=== PATIENT | female | born 1995 | race Caucasian/White ===

== ENCOUNTER 2024-09-02 08:23 | Outpatient (AMB) | payer BC, SELFPAY ==
--- NOTE | 2024-09-02 08:25 | GYNCLNT_ITS ---
Vital Signs 09/02/24 08:29 Height 1.57 m Height Method Stated Weight 63.56 kg Weight Measurement Method Standing Scale BMI 25.6 BP 121/87 H Blood Pressure Source Automatic Cuff Blood Pressure Location Left Upper Arm Position Sitting Respiration 18 Pulse 92 Pulse Source Monitor Temp 97.9 F Temp Source Oral Pulse Oximetry (%) 96 Oxygen Delivery Method Room Air Allergies/Home Meds Allergies & Medications Allergies No Known Allergies Allergy (Verified 09/02/24 08:30) Medication Reconciliation No Known Home Medications 09/02/24 [History Confirmed 09/02/24] Intake Visit Data Collection New Patient or Established: New Patient not seen in past 3 years at [facility] (considered New) Reason for Visit:: ANNUAL WELLNESS Seen by Clinical Staff ONLY (RN/MA): No Flat Grinder Operator Required: No Do You Feel Safe at Home: Yes Authorities Contacted: N/A PCP or OBGYN visit in last 3 months: No Hx Now: No Are you currently on any form of Control: No Last menstrual period: 08/09/24 Pain Present Currently: No Pain Scale Used: Booker-Beauchamp/Numerical Pain scale:: 0 Smoking Status Smoking Status: Never smoker Beam Dyer Recessed Vat history Beam Dyer Recessed Vat History Menstrual regularity: regular Flow: normal Monthly: Yes How many days does period last: 6 Age at menarche: 14 Menopausal: No Currently sexually active: Yes Additional comments: Actively trying to get Questionnaires Covid-19 Vaccine Questionnaire Has patient been vacinated for Covid-19 Have you been vacinated for Covid-19: Yes PHQ-9 PHQ-2 Over the last 2 weeks, how often have you been bothered by any of the following problems? 1. Little interest or pleasure in doing things: not at all 2. Feeling down, depressed, or hopeless: not at all Total score: 0 PHQ-9 3. Trouble falling or staying asleep, or sleeping too much: Not at all 4. Feeling tired or having little energy: Not at all 5. Poor appetite or overeating: Not at all 6. Feeling bad about yourself - or that you are a failure or have let yourself or your family down: Not at all 7. Trouble concentrating on things, such as reading the newspaper or watching television: Not at all 8. Moving or speaking so slowly that other people could have noticed? - Or the opposite - being so fidgety or restless that you have been moving around a lot more than usual: not at all 9. Thoughts that you would be better off or of hurting yourself in some way: Not at all Total score: 0 Source: Developed by Drs. Arnav Gutierrez, Bella Irene, Mark William and colleagues, with an educational derrick from [employer]. Depression screen completed yes Social History Living Situation History Marital Status: Lives With: Family Housing: House Housing Other:: Patient works for [employer]. Her is a police detective. 5 y/o girl Tobacco History Smoking Status: Never smoker Second Hand Smoke Exposure: No Alcohol History Alcohol Intake: Never Domestic Abuse History Do You Feel Safe at Home: Yes Past Medical History Past Medical History Have you ever been diagnosed with any of the following: Cardiology Problems Hypertension: Yes (With ) Respiratory Problems Tuberculosis: No Genital/Urinary Problems Chronic Kidney Disease: No Renal Disease: No Reproductive Problems Breast Cancer: No Endometriosis: No Fibroids: No Genital Herpes: No Gonorrhea: No Pelvic Inflammatory Disease: No Polycystic Ovarian Syndrome: No Previous Pregnancies: Yes ( 3 years ago. Induced at 40 weeks. Pushed 45 minutes.) Syphilis: No Uterine Prolapse: No Other Problems Hospitalization: Yes (For childbirth) History of Present Illness HPI Narrative The patient is a 29 year old who presents for an annual exam. I delivered her daughter, Jasmeet, in [address], at 40-4/7 weeks. She states her blood pressure was up slightly. I stripped her membranes in the office and she went over to the hospital she ended up getting an epidural and Pitocin . She stated she pushed for 45 minutes. Her delivery was uncomplicated. She is actively trying to achieve again. She states she has regular menses. She has no gynecological complaints, no abnormal uterine bleeding, no pelvic pain, no abnormal discharge. Exam General General Appearance: alert, in no apparent distress, comfortable, cooperative, healthy appearing and well groomed Neck Neck exam: Present normal inspection, full ROM and trachea midline Chest Chest inspection: Present normal inspection and symmetric chest wall rise Exp Chest Breast: bilateral: other (Breast exam performed and normal bilaterally) Resp Respiratory exam: Present normal lung sounds bilaterally Card Cardiovascular exam: Present regular rate, normal rhythm and normal heart sounds Abdominal Abdominal exam: Present soft and normal bowel sounds External exam: Present normal external exam Speculum exam: Present normal speculum exam Bimanual exam: Present normal bimanual exam (Uterus is anteverted no adnexal masses or tenderness) Extremities Extremities exam: Present normal inspection and full ROM Psych Psychiatric exam: Present normal affect and normal mood Skin Skin exam: Present warm, dry, intact and normal color Assessment & Plan Diagnosis / Problem List (1) Women's annual routine gynecological examination: Status: Acute Assessment and Plan: Pap with cotesting to HPV performed breast exam done and encouraged (2) Pre-conception counseling: Status: Acute Assessment and Plan: Patient to take vitamins. She is up-to-date in all immunizations. She will consider baby aspirin during her next time for a history of hypertension during . She will call with a positive test. Office Procedures OB Clinic LOC & Office Proc's Nursing/Assessment Patient Status: Initial/New Patient OB Clinic Nursing Assessment: Medication Reconciliation, Update PMH in EMR and Vital Signs OB Clinic Coordination of Care: Complex Care and Chronic Disease 1-5, Consent,records obtained, informed consent, Education Simp Pt/Fam, Lab and Imaging orders and Staff clarify orders Miscellaneous Interventions: Breast Exam and Pelvic/Pap Smear Set up New Patient Charge New Patient Point Assignment: 1149 New Patient Point Charge: PHARMACY SERVICES DIRECTOR Level 4 ([id number]) In Clinic Procedures Pap Smear: Yes PIPE INSTALLER: Papsmear Pap Smear Procedure Chaparone in room during procedure?: No Pre-op diagnosis general: Annual wellness exam Post-op diagnosis procedure note: Same Procedure Notes:: Pap with cotesting to HPV performed
[2024-09-02 08:29] VITALS: BP 121/87; PULSE 92; RESP 18; TEMP 36.6; O2SAT 96; BMI 25.6
== END 2024-09-02 09:16 | disposition home or self-care (01) ==
PROVIDERS: PCP Family Medicine; Referring Provider Family Medicine; Supervising Provider Obstetrics & Gynecology; Visit Provider Obstetrics & Gynecology
DX: Z01.419 Encounter for gynecological examination (general) (routine) without abnormal findings (principal); Z11.51 Encounter for screening for human papillomavirus (HPV); Z87.59 Personal history of other complications of pregnancy, childbirth and the puerperium
CPT/HCPCS: 99204; Q0091; G0463

== ENCOUNTER 2024-10-27 09:22 | Outpatient (AMB) | payer BC, SELFPAY ==
[2024-10-27 09:36] VITALS: BP 128/74; PULSE 94; RESP 17; TEMP 36.4; O2SAT 98; BMI 25.2
--- NOTE | 2024-10-27 09:36 | AMB.OBINITIA ---
Vital Signs 10/27/24 09:36 Height 1.57 m Height Method Measured Weight 62.596 kg Weight Measurement Method Standing Scale BMI 25.2 BP 128/74 Blood Pressure Source Automatic Cuff Blood Pressure Location Right Upper Arm Position Sitting Respiration 17 Pulse 94 Pulse Source Monitor Temp 97.6 F Temp Source Temporal Artery Scan Pulse Oximetry (%) 98 Oxygen Delivery Method Room Air Allergies/Home Meds Allergies & Medications Allergies No Known Allergies Allergy (Verified 10/27/24 09:37) Medication Reconciliation No Known Home Medications 09/02/24 [History Confirmed 10/27/24] Intake Visit Data Collection New Patient or Established: Established Patient (seen at [facility] within 3 years) Reason for Visit:: SOTO Consent obtained for Telemed Visit: No Seen by Clinical Staff ONLY (RN/MA): No Shrimp Picker Required: No Do You Feel Safe at Home: Yes Authorities Contacted: N/A PCP or OBGYN visit in last 3 months: Yes Date of Last PCP or OBGYN visit: 09/02/24 Hx Now: Yes Are you currently on any form of Control: No Last menstrual period: 08/25/24 Pain Present Currently: No Pain Scale Used: Booker-Beauchamp/Numerical Pain scale:: 0 Smoking Status Smoking Status: Never smoker Questionnaires Covid-19 Vaccine Questionnaire Has patient been vacinated for Covid-19 Have you been vacinated for Covid-19: Yes PHQ-9 PHQ-2 Over the last 2 weeks, how often have you been bothered by any of the following problems? 1. Little interest or pleasure in doing things: not at all 2. Feeling down, depressed, or hopeless: not at all Total score: 0 PHQ-9 3. Trouble falling or staying asleep, or sleeping too much: Not at all 4. Feeling tired or having little energy: Not at all 5. Poor appetite or overeating: Not at all 6. Feeling bad about yourself - or that you are a failure or have let yourself or your family down: Not at all 7. Trouble concentrating on things, such as reading the newspaper or watching television: Not at all 8. Moving or speaking so slowly that other people could have noticed? - Or the opposite - being so fidgety or restless that you have been moving around a lot more than usual: not at all 9. Thoughts that you would be better off or of hurting yourself in some way: Not at all Total score: 0 If you checked off any problems, how difficult have these problems made it for you to do your work, take care of things at home, or get along with other people?: not difficult at all Source: Developed by Drs. Arnav Gutierrez, Bella Irene, Mark William and colleagues, with an educational derrick from [employer]. Social History Living Situation History Marital Status: Lives With: Family Housing: House Housing Other:: Patient works for [employer]. Her is a police detention attendant. 5 y/o girl Tobacco History Smoking Status: Never smoker Second Hand Smoke Exposure: No Alcohol History Alcohol Intake: Former Alcohol Intake Frequency: holidays/special occasions only Domestic Abuse History Do You Feel Safe at Home: Yes History of Present Illness HPI Narrative Patient was not seen as I was out for delivery. She did have an ultrasound and lab work ordered. She will return in 2 weeks for a visit. An ultrasound revealed a live IUP at 9 weeks 2 days with cardiac activity noted. LEARNING ANALYST: Past Medical History Past Medical History: No Hx Breast Cancer, Yes Hx Hypertension (With ), No Hx Renal Disease and No Hx Polycystic Ovarian Syndrome OB Initial Visit Menstrual History Menstrual reliability: definite Flow: normal Menstrual regularity: regular Monthly: Yes Age at menarche: 15 On control pills at conception: No Date of positive home test: 09/18/24 OB History : 2 Para: 1 Hx # Pregnancies: 0 Hx Total # of Abortions (Spontaneous & Elective): 0 # of Living Children: 1 Delivery History 1st : Child's name: ELY RICH date: 10/02/21 sex: female Gestational age at delivery (weeks): 40 Delivery type: vaginal weight (lbs): 2721.554 g weight (oz): 85.049 g History of depression before or after : No Infection History & Risk Evaluation History of STDs: none HIV risk evaluation: low risk Hepatitis B risk evaluation: low risk Patient or partner has history of Genital Herpes: No Genetic Screening & History Genetic Screening/Teratology Counseling - Includes patient, baby's father, or anyone in either family with: 1. Patient's age 35 years or older as of estimated date of delivery: No 2. Thalassemia (Zimbabwean, Barbadian, Mediterranean, or Background); MCV less than 80: No 3. Neural Tube Defect (Meningomyelocele, Spina Bifida, or Anencephaly): No 4. Congenital Heart Defect: No 5. Down Syndrome: No 6. Pola-Sachs (Ashkenazi Hoahaoism, Cajun, Ivorian Hubertus): No 7. Alexandra Disease (Ashkenazi Hoahaoism): No 8. Familial Dysautonomia (Ashkenazi Hoahaoism): No 9. Sickle Cell Disease or Trait (): No 10. Hemophilia or other blood disorders: No 11. Muscular Dystrophy: No 12. Cystic Fibrosis: No 13. [place]'s Chorea: No 14. Mental Retardation/Autism: No 15. Other inherited genetic or chromosomal disorder: No 16. Maternal Metabolic Disorder (EG,TYPE 1 Diabetes, PKU): No 17. Patient or baby's father had a child with defects not listed above: No 18. Recurrent loss or a stillbirth: No 19. Medications (including supplements, vitamins, herbs or otc drugs)/illicit/recreational drugs/alcohol since last menstrual period: No 20. Any other: No Infection History 1. Live with someone with TB or exposed to TB: No 2. Rash or viral illness since last menstrual period: No 3. Hepatitis B,C: No Other (see comments) Source: [employer] Office Procedures OB Clinic LOC & Office Proc's Nursing/Assessment Patient Status: Established Patient OB Clinic Nursing Assessment: Medication Reconciliation, Update PMH in EMR and Vital Signs OB Clinic Coordination of Care: Complex Care and Chronic Disease 1-5, Consent,records obtained, informed consent and Staff clarify orders Special Needs: Heart tones Established Patient Charge Established Patient Point Assignment: 100 Established Patient Point Charge: EP Level 3 (80-115) Assessment & Plan Diagnosis / Problem List (1) Amenorrhea, secondary: Status: Acute Assessment and Plan: test positive. For labs and ultrasound. Follow-up in 2 weeks for a new OB visit. Patient was not seen or examined today as I was out for a delivery.
== END 2024-10-27 11:55 | disposition home or self-care (01) ==
LOC: HODSOBC 09:22
PROVIDERS: PCP Family Medicine; Referring Provider Family Medicine; Supervising Provider Obstetrics & Gynecology; Visit Provider Obstetrics & Gynecology
DX: Z32.01 Encounter for pregnancy test, result positive (principal); N91.1 Secondary amenorrhea
CPT/HCPCS: 99213; G0463

== ENCOUNTER → 2024-10-27 | Outpatient (CLI) | payer BC, SELFPAY ==
--- NOTE | 2024-10-27 | XR_ITS ---
Examination: Complete OB ultrasound, less than 14 weeks, transabdominal Date and time of exam: October 27, 2024 1148 hours INDICATIONS: Supervision normal Technique: Obstetrical ultrasound images less than 14 weeks performed via transabdominal imaging Findings: A normal shaped single intrauterine gestation is present in the uterus. pole 2.5 cm corresponds to 9 weeks 2 days gestational age Cardiac motion 176 BPM Subchorionic hemorrhage 17 x 8 x 9 mm Ultrasonographic survey of visible and placental structures unremarkable. Amniotic fluid volume appears appropriate for this estimated gestational age. Right ovary 3.4 x 1.8 x 2.6 cm arterial flow small follicles largest 16 mm Left ovary 2.6 cm arterial flow IMPRESSION: Viable intrauterine gestation 9 weeks 2 days Consider short-term follow-up given the subchorionic hemorrhage.
[2024-10-27 13:45] LABS: Basophils # (Auto) 0.0 Thou/mm3 (0.0-0.2); Basophils % (Auto) 0 % (0-2.5); Eosinophils # (Auto) 0.0 Thou/mm3 (0.0-0.5); Eosinophils % (Auto) 0 % (0-10); Hematocrit 38.4 % (36.0-46.0); Hemoglobin 13.3 g/dL (12.0-16.0); Immature Granulocytes Auto 0.02 Thou/mm3 (0.00-0.00); Lymphocytes # (Auto) 1.3 Thou/mm3 (1.0-4.8); Lymphocytes % (Auto) 17 % (10-50); Mean Corpuscular HGB Conc 34.6 g/dl (31.0-37.0); Mean Corpuscular Hemoglobin 28.6 pg (25.0-35.0); Mean Corpuscular Volume 83 fL (80-100); Monocytes # (Auto) 0.4 Thou/mm3 (0.0-0.8); Monocytes % (Auto) 5 % (0-12); Neutrophils # (Auto) 5.9 Thou/mm3 (1.8-7.7); Neutrophils % (Auto) 77 % (37-80); Nucleated Red Blood Cell # 0.00 Thou/mm3 (0.00-0.00); Nucleated Red Blood Cell % 0 /100 WBC (0); Platelet Count 250 Thou/mm3 (140-440); RDW Standard Deviation 37.7 fL (36.4-46.3); Red Blood Count 4.65 Miln/mm3 (4.00-5.20); White Blood Count 7.7 Thou/mm3 (3.6-11.0)
[2024-10-27 14:20] LABS: Hepatitis B Surface Antigen Non Reactive (Non React); Rubella, IgG Antibody Reactive (Immune)
[2024-10-27 16:20] LABS: HIV (1&2) Antibody Rapid Non-Reactive
== END | disposition home or self-care (01) ==
LOC: CDIM 11:42 → COPL 12:05
PROVIDERS: PCP Family Medicine; Referring Provider Obstetrics & Gynecology; Visit Provider Radiology Diagnostic Radiology
DX: O26.91 Pregnancy related conditions, unspecified, first trimester (principal); Z3A.09 9 weeks gestation of pregnancy
CPT/HCPCS: 36415; 76801; 85025; 86703; 86762; 86850; 86900; 86901; 87340

== ENCOUNTER 2024-11-16 08:55 | Outpatient (AMB) | payer BC, SELFPAY ==
[2024-11-16 09:12] VITALS: BP 127/80; PULSE 91; RESP 17; TEMP 36.8; O2SAT 98; BMI 26.2
--- NOTE | 2024-11-16 09:12 | OBCLNT_ITS ---
Vital Signs 11/16/24 09:12 Height 1.57 m Height Method Measured Weight 64.467 kg Weight Measurement Method Standing Scale BMI 26.2 BP 127/80 Blood Pressure Source Automatic Cuff Blood Pressure Location Right Upper Arm Position Sitting Respiration 17 Pulse 91 Pulse Source Monitor Temp 98.2 F Temp Source Temporal Artery Scan Pulse Oximetry (%) 98 Oxygen Delivery Method Room Air Allergies/Home Meds Allergies & Medications Allergies No Known Allergies Allergy (Verified 11/16/24 09:12) Medication Reconciliation No Known Home Medications 09/02/24 [History Confirmed 11/16/24] Intake Visit Data Collection New Patient or Established: Established Patient (seen at [facility] within 3 years) Reason for Visit:: OBI Consent obtained for Telemed Visit: No Seen by Clinical Staff ONLY (RN/MA): No Wood Caulker Required: No Do You Feel Safe at Home: Yes Authorities Contacted: N/A PCP or OBGYN visit in last 3 months: Yes Date of Last PCP or OBGYN visit: 10/27/24 Hx Now: Yes Are you currently on any form of Control: No Last menstrual period: 08/25/24 Pain Present Currently: No Pain Scale Used: Booker-Beauchamp/Numerical Pain scale:: 0 Smoking Status Smoking Status: Never smoker Questionnaires Covid-19 Vaccine Questionnaire Has patient been vacinated for Covid-19 Have you been vacinated for Covid-19: Yes PHQ-9 PHQ-2 Over the last 2 weeks, how often have you been bothered by any of the following problems? 1. Little interest or pleasure in doing things: not at all PHQ-9 8. Moving or speaking so slowly that other people could have noticed? - Or the opposite - being so fidgety or restless that you have been moving around a lot more than usual: not at all Source: Developed by Drs. Arnav Gutierrez, Bella Irene, Mark William and colleagues, with an educational derrick from [employer]. Social History Living Situation History Lives With: Family Housing: House Housing Other:: Patient works for [employer]. Her is a credit control officer. 5 y/o girl Tobacco History Smoking Status: Never smoker Second Hand Smoke Exposure: No Alcohol History Alcohol Intake: Former Alcohol Intake Frequency: holidays/special occasions only Domestic Abuse History Do You Feel Safe at Home: Yes History of Present Illness HPI Narrative Patient is a 29-year-old -0-0-1 who presents at 12 weeks with her for an OB visit. She was seen here approximately 3 weeks ago at 9 weeks and had an official ultrasound and lab work done. I could not see the patient as I was out doing surgery. She denies any contractions loss of fluids or vaginal bleeding. She is a 3-year-old daughter at home and delivery was uncomplicated. They do not want to find out the gender of this . OB Ultrasound Indication Indication: Size and dates, check heart tones OB Ultrasound Ultrasound technique: transabdominal Gestational sac assessment: Presence, location, size, shape: Live IUP crown-rump length 5.24 cm gestational age 12 weeks EDC to 05/30/25 HAM FACER: Past Medical History Past Medical History: No Hx Breast Cancer, Yes Hx Hypertension (With ), No Hx Renal Disease and No Hx Polycystic Ovarian Syndrome OB Initial Visit Menstrual History Menstrual reliability: definite Flow: normal Menstrual regularity: regular Monthly: Yes Age at menarche: 15 On control pills at conception: No OB History : 2 Para: 1 Hx # Pregnancies: 0 Hx Total # of Abortions (Spontaneous & Elective): 0 # of Living Children: 1 Delivery History 1st : Child's name: ELY RICH date: 10/02/21 sex: female Gestational age at delivery (weeks): 40 Delivery type: vaginal weight (lbs): 2721.554 g weight (oz): 85.049 g History of depression before or after : No Infection History & Risk Evaluation History of STDs: none HIV risk evaluation: low risk Hepatitis B risk evaluation: low risk Patient or partner has history of Genital Herpes: No Genetic Screening & History Genetic Screening/Teratology Counseling - Includes patient, baby's father, or anyone in either family with: 1. Patient's age 35 years or older as of estimated date of delivery: No 2. Thalassemia (Spanish, Occitan, Mediterranean, or Background); MCV less than 80: No 3. Neural Tube Defect (Meningomyelocele, Spina Bifida, or Anencephaly): No 4. Congenital Heart Defect: No 5. Down Syndrome: No 6. Pola-Sachs (Ashkenazi Anabaptist, Cajun, Amharic Wallisian): No 7. Alexandra Disease (Ashkenazi Anabaptist): No 8. Familial Dysautonomia (Ashkenazi Anabaptist): No 9. Sickle Cell Disease or Trait (): No 10. Hemophilia or other blood disorders: No 11. Muscular Dystrophy: No 12. Cystic Fibrosis: No 13. [place]'s Chorea: No 14. Mental Retardation/Autism: No 15. Other inherited genetic or chromosomal disorder: No 16. Maternal Metabolic Disorder (EG,TYPE 1 Diabetes, PKU): No 17. Patient or baby's father had a child with defects not listed above: No 18. Recurrent loss or a stillbirth: No 19. Medications (including supplements, vitamins, herbs or otc drugs)/illicit/recreational drugs/alcohol since last menstrual period: No 20. Any other: No Infection History 1. Live with someone with TB or exposed to TB: No 2. Rash or viral illness since last menstrual period: No 3. Hepatitis B,C: No Other (see comments) Source: [employer] Exam General Limitations: no limitations General Appearance: alert, in no apparent distress, comfortable, cooperative, healthy appearing, well developed and well groomed Neck Neck exam: Present normal inspection, full ROM and trachea midline Chest Chest inspection: Present normal inspection and symmetric chest wall rise Resp Respiratory exam: Present normal lung sounds bilaterally Card Cardiovascular exam: Present regular rate, normal rhythm and normal heart sounds Abdominal Abdominal exam: Present soft and normal bowel sounds Extremities Extremities exam: Present normal inspection and full ROM Psych Psychiatric exam: Present normal affect and normal mood Skin Skin exam: Present warm, dry, intact and normal color Office Procedures OB Clinic LOC & Office Proc's Nursing/Assessment Patient Status: Established Patient OB Clinic Nursing Assessment: Medication Reconciliation, Update PMH in EMR and Vital Signs OB Clinic Coordination of Care: Complex Care and Chronic Disease 1-5, Consent,records obtained, informed consent, Education Simp Pt/Fam and 4+ Authorizations needed Special Needs: Heart tones Established Patient Charge Established Patient Point Assignment: 130 Established Patient Point Charge: EP Level 4 (120-155) Assessment & Plan Diagnosis / Problem List (1) : Status: Acute Qualifiers: Weeks of gestation: 12 weeks Qualified Code(s): Z3A.12 - 12 weeks gestation of Assessment and Plan: Patient had an ultrasound 10/27/2024 revealing a 9-week 2-day fetus with heart tones and an EDC of 05/30/2025 labs are on the chart blood type is A-. Father the baby is with her today her and he is O-. Follow-up in 4 weeks.
== END 2024-11-16 09:48 | disposition home or self-care (01) ==
PROVIDERS: PCP Family Medicine; Referring Provider Family Medicine; Supervising Provider Obstetrics & Gynecology; Visit Provider Obstetrics & Gynecology
DX: Z34.81 Encounter for supervision of other normal pregnancy, first trimester (principal); Z3A.12 12 weeks gestation of pregnancy
CPT/HCPCS: 99214; G0463

== ENCOUNTER 2024-12-27 10:23 | Outpatient (AMB) | payer BC, SELFPAY ==
--- NOTE | 2024-12-27 10:41 | AMB.OBVISIT ---
Vital Signs 12/27/24 10:50 Height 1.57 m Height Method Stated Weight 66.281 kg Weight Measurement Method Standing Scale BMI 26.9 BP 136/89 H Blood Pressure Source Automatic Cuff Blood Pressure Location Left Upper Arm Position Sitting Respiration 18 Pulse 112 H Pulse Source Monitor Temp 97.7 F Temp Source Oral Pulse Oximetry (%) 98 Oxygen Delivery Method Room Air Allergies/Home Meds Allergies & Medications Allergies No Known Allergies Allergy (Verified 12/27/24 10:51) Medication Reconciliation No Known Home Medications 09/02/24 [History Confirmed 12/27/24] Intake Visit Data Collection New Patient or Established: Established Patient (seen at [facility] within 3 years) Reason for Visit:: CARE Seen by Clinical Staff ONLY (RN/MA): No Senior Human Resources Representative Required: No Do You Feel Safe at Home: Yes Authorities Contacted: N/A PCP or OBGYN visit in last 3 months: Yes Hx Now: Yes Are you currently on any form of Control: No Pain Present Currently: No Pain Scale Used: Booker-Beauchamp/Numerical Pain scale:: 0 Smoking Status Smoking Status: Never smoker Questionnaires Covid-19 Vaccine Questionnaire Has patient been vacinated for Covid-19 Have you been vacinated for Covid-19: Yes PHQ-9 PHQ-2 Over the last 2 weeks, how often have you been bothered by any of the following problems? 1. Little interest or pleasure in doing things: not at all 2. Feeling down, depressed, or hopeless: not at all Total score: 0 PHQ-9 3. Trouble falling or staying asleep, or sleeping too much: Not at all 4. Feeling tired or having little energy: Not at all 5. Poor appetite or overeating: Not at all 6. Feeling bad about yourself - or that you are a failure or have let yourself or your family down: Not at all 7. Trouble concentrating on things, such as reading the newspaper or watching television: Not at all 8. Moving or speaking so slowly that other people could have noticed? - Or the opposite - being so fidgety or restless that you have been moving around a lot more than usual: not at all 9. Thoughts that you would be better off or of hurting yourself in some way: Not at all Total score: 0 Source: Developed by Bella Mabry B.W. Teto, Mark William and colleagues, with an educational derrick from [employer]. Depression screen completed yes Social History Living Situation History Lives With: Family Housing: House Housing Other:: Patient works for [employer]. Her is a uniform patrol police officer. 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 No loss of fluids Ordered structural survey ultrasound for [facility] in 2 weeks. ESE Calculator Estimated Delivery Date Method Current WG Current Estimate 06/01/25 LMP (Certain) 17w 5d Expected Delivery Route/Plan -0-0-1 Status post vaginal delivery 3 years ago without complications Specific Issue/Plans Blood type A-. Father the baby O-. Had appointments on 10/27 and 11/16 labs: A-/antibody screen negative rubella immune//hepatitis B surface antigen negative/HIV negative/hemoglobin 13 No urine culture checked no RPR checked no GC chlamydia checked will order Had 9-week ultrasound 10/27/2024: At [facility] live IUP 9-2/7 weeks with a EDC of 05/30/2025. Declines NIPT Notes Visit Date: 12/27/24 Last Updated by: Odilia Dill (OB Clinic)MD Declines NIPT. Will order all labs not done the first time they were ordered at [facility]. Office Procedures OB Clinic LOC & Office Proc's Nursing/Assessment Patient Status: Established Patient OB Clinic Nursing Assessment: Medication Reconciliation, Update PMH in EMR and Vital Signs OB Clinic Coordination of Care: Complex Care and Chronic Disease 1-5, Consent,records obtained, informed consent, Education Simp Pt/Fam, Lab and Imaging orders, Results/Orders obtained and Staff clarify orders Special Needs: Heart tones Established Patient Charge Established Patient Point Assignment: 135 Established Patient Point Charge: EP Level 4 (120-155) Assessment & Plan Diagnosis / Problem List (1) : Status: Acute Qualifiers: Weeks of gestation: 17 weeks Qualified Code(s): Z3A.17 - 17 weeks gestation of (2) Rh negative state in antepartum period: Status: Acute Plan: Patient is A negative. Father the baby is O-
[2024-12-27 10:50] VITALS: BP 136/89; PULSE 112; RESP 18; TEMP 36.5; O2SAT 98; BMI 26.9
== END 2024-12-27 11:15 | disposition home or self-care (01) ==
LOC: HODSOBC 10:23
PROVIDERS: PCP Family Medicine; Referring Provider Family Medicine; Supervising Provider Obstetrics & Gynecology; Visit Provider Obstetrics & Gynecology
DX: O09.892 Supervision of other high risk pregnancies, second trimester (principal); Z67.11 Type A blood, Rh negative; Z3A.17 17 weeks gestation of pregnancy
CPT/HCPCS: 99214; G0463

== ENCOUNTER → 2025-01-11 | Outpatient (CLI) | payer BC, SELFPAY ==
--- NOTE | 2025-01-11 15:00 | XR_ITS ---
Examination: Complete OB ultrasound greater than 14 weeks Date and time of exam: January 11, 2025 1507 hours INDICATIONS: Supervision of normal Findings: Viable intrauterine single fetus with single amniotic sac presentation cephalic Cardiac motion 160 BPM Placenta posterior maternal right Amniotic fluid one pocket 3.6 cm spine maternal left Cervix 3.6 cm Ovaries obscured by bowel gas Composite estimated gestational age based on BPD, head circumference, abdominal circumference, femur length is 19 weeks 5 days Estimated weight 284 g. Survey of intracranial anatomy, spinal anatomy, abdominal anatomy, four-chamber heart performed with no abnormalities identified. Impression: Viable intrauterine gestation cephalic presentation.
[2025-01-11 17:25] LABS: Syphilis Nonreactive (Nonreactive)
[2025-01-11 20:01] LABS: Hepatitis C Antibody Non Reactive (Non React)
[2025-01-12 10:27] LABS: Chlamydia trachomatis PCR Negative (Not Detect); Neisseria Gonorrhoeae DNA PCR Negative (Not Detect); Trichomonas Negative (Negative)
== END | disposition home or self-care (01) ==
LOC: CDIM 15:04 → COPL 15:28
PROVIDERS: PCP Family Medicine; Referring Provider Obstetrics & Gynecology; Visit Provider Obstetrics & Gynecology
DX: Z34.92 Encounter for supervision of normal pregnancy, unspecified, second trimester (principal); Z3A.17 17 weeks gestation of pregnancy
CPT/HCPCS: 36415; 76805; 86780; 86803; 87086; 87491; 87591; 87661

== ENCOUNTER 2025-01-20 08:18 | Outpatient (AMB) | payer BC, SELFPAY ==
[2025-01-20 08:33] VITALS: BP 130/84; PULSE 104; RESP 18; TEMP 36.6; O2SAT 98; BMI 28.2
--- NOTE | 2025-01-20 08:33 | AMB.OBVISIT ---
Vital Signs 01/20/25 08:33 Height 1.57 m Height Method Stated Weight 69.513 kg Weight Measurement Method Standing Scale BMI 28.2 BP 130/84 Blood Pressure Source Automatic Cuff Blood Pressure Location Left Upper Arm Position Sitting Respiration 18 Pulse 104 H Pulse Source Monitor Temp 97.9 F Temp Source Oral Pulse Oximetry (%) 98 Oxygen Delivery Method Room Air Allergies/Home Meds Allergies & Medications Allergies No Known Allergies Allergy (Verified 01/20/25 08:34) Medication Reconciliation No Known Home Medications 09/02/24 [History Confirmed 01/20/25] Intake Visit Data Collection New Patient or Established: Established Patient (seen at [facility] within 3 years) Reason for Visit:: CARE Seen by Clinical Staff ONLY (RN/MA): No Safety Aide Required: No Do You Feel Safe at Home: Yes Authorities Contacted: N/A PCP or OBGYN visit in last 3 months: Yes Hx Now: Yes Are you currently on any form of Control: No Pain Present Currently: No Pain Scale Used: Booker-Beauchamp/Numerical Pain scale:: 0 Smoking Status Smoking Status: Never smoker Questionnaires Covid-19 Vaccine Questionnaire Has patient been vacinated for Covid-19 Have you been vacinated for Covid-19: Yes PHQ-9 PHQ-2 Over the last 2 weeks, how often have you been bothered by any of the following problems? 1. Little interest or pleasure in doing things: not at all 2. Feeling down, depressed, or hopeless: not at all Total score: 0 PHQ-9 3. Trouble falling or staying asleep, or sleeping too much: Not at all 4. Feeling tired or having little energy: Not at all 5. Poor appetite or overeating: Not at all 6. Feeling bad about yourself - or that you are a failure or have let yourself or your family down: Not at all 7. Trouble concentrating on things, such as reading the newspaper or watching television: Not at all 8. Moving or speaking so slowly that other people could have noticed? - Or the opposite - being so fidgety or restless that you have been moving around a lot more than usual: not at all 9. Thoughts that you would be better off or of hurting yourself in some way: Not at all Total score: 0 Source: Developed by Bella Mabry B.W. Teto, Mark William and colleagues, with an educational derrick from [employer]. Depression screen completed yes Social History Living Situation History Lives With: Family Housing: House Housing Other:: Patient works for [employer]. Her is a police magistrate. 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 No loss of fluids Ordered structural survey ultrasound for [facility] in 2 weeks. 01/20/25 <del>?</del> 21w 1d 69.513 kg 130/84 absent 22 active No bleeding. No contractions. Reviewed normal structural survey. Patient wants gender to be a surprise. ESE Calculator Estimated Delivery Date Method Current WG Current Estimate 06/01/25 LMP (Certain) 21w 1d Expected Delivery Route/Plan -0-0-1 Status post vaginal delivery 3 years ago without complications Specific Issue/Plans Blood type A-. Father the baby O-. Had appointments on 10/27 and 11/16 labs: A-/antibody screen negative rubella immune//hepatitis B surface antigen negative/HIV negative/hemoglobin 13 No urine culture checked no RPR checked no GC chlamydia checked will order Had 9-week ultrasound 10/27/2024: At [facility] live IUP 9-2/7 weeks with a EDC of 05/30/2025. Declines NIPT Notes Visit Date: 01/20/25 Last Updated by: Odilia Dill (OB Clinic)MD Normal structural survey on chart at [facility] from 01/11/2025 Trichomonas GC chlamydia negative RPR negative hepatitis C- follow-up in 4 weeks. Visit Date: 12/27/24 Last Updated by: Odilia Dill (OB Clinic)MD Declines NIPT. Will order all labs not done the first time they were ordered at [facility]. Office Procedures OBC Clinic LOC & Office Proc's Nursing/Assessment Patient Status: Established Patient OB Clinic Nursing Assessment: Medication Reconciliation, Update PMH in EMR and Vital Signs OB Clinic Coordination of Care: Complex Care and Chronic Disease 1-5, Consent,records obtained, informed consent, Education Simp Pt/Fam, 1 Ins Authorization, Lab and Imaging orders, Results/Orders obtained and Staff clarify orders Special Needs: Heart tones Established Patient Charge Established Patient Point Assignment: 150 Established Patient Point Charge: EP Level 4 (120-155) Assessment & Plan Diagnosis / Problem List (1) Rh negative state in antepartum period: Status: Acute Plan: Patient is Rh- and so is her . No RhoGAM needed. (2) : Status: Acute Qualifiers: Weeks of gestation: 21 weeks Qualified Code(s): Z3A.21 - 21 weeks gestation of
== END 2025-01-20 09:15 | disposition home or self-care (01) ==
LOC: HODSOBC 08:18
PROVIDERS: PCP Family Medicine; Referring Provider Family Medicine; Supervising Provider Obstetrics & Gynecology; Visit Provider Obstetrics & Gynecology
DX: O09.892 Supervision of other high risk pregnancies, second trimester (principal); Z67.11 Type A blood, Rh negative; Z3A.21 21 weeks gestation of pregnancy
CPT/HCPCS: 99214; G0463

== ENCOUNTER 2025-02-16 08:29 | Outpatient (AMB) | payer BC, SELFPAY ==
--- NOTE | 2025-02-16 08:34 | AMB.OBVISIT ---
Vital Signs 02/16/25 08:43 Height 1.57 m Height Method Stated Weight 71.668 kg Weight Measurement Method Standing Scale BMI 29.0 BP 127/80 Blood Pressure Source Automatic Cuff Blood Pressure Location Left Upper Arm Position Sitting Respiration 18 Pulse 121 H Pulse Source Monitor Temp 97.2 F Temp Source Oral Pulse Oximetry (%) 98 Oxygen Delivery Method Room Air Allergies/Home Meds Allergies & Medications Allergies No Known Allergies Allergy (Verified 02/16/25 08:34) Medication Reconciliation No Known Home Medications 09/02/24 [History Confirmed 02/16/25] Intake Visit Data Collection New Patient or Established: Established Patient (seen at [facility] within 3 years) Reason for Visit:: OBC Seen by Clinical Staff ONLY (RN/MA): No 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 1. Little interest or pleasure in doing things: not at all 2. Feeling down, depressed, or hopeless: not at all Total score: 0 PHQ-9 3. Trouble falling or staying asleep, or sleeping too much: Not at all 4. Feeling tired or having little energy: Not at all 5. Poor appetite or overeating: Not at all 6. Feeling bad about yourself - or that you are a failure or have let yourself or your family down: Not at all 7. Trouble concentrating on things, such as reading the newspaper or watching television: Not at all 8. Moving or speaking so slowly that other people could have noticed? - Or the opposite - being so fidgety or restless that you have been moving around a lot more than usual: not at all 9. Thoughts that you would be better off or of hurting yourself in some way: Not at all Total score: 0 If you checked off any problems, how difficult have these problems made it for you to do your work, take care of things at home, or get along with other people?: not difficult at all Source: Developed by Drs. Arnav Gutierrez, Bella Irene, Mark William and colleagues, with an educational derrick from [employer]. Depression screen completed yes Social History Living Situation History Marital Status: Single Lives With: Family Housing: House Housing Other:: Patient works for [employer]. Her is a police superintendent. 5 y/o girl Tobacco History Smoking Status: Never smoker Second Hand Smoke Exposure: No Alcohol History Alcohol Intake: Former Alcohol Intake Frequency: holidays/special occasions only Domestic Abuse History Do You Feel Safe at Home: Yes [employer] RAILROAD: Past Medical History Past Medical History: No Hx Breast Cancer, Yes Hx Hypertension (With ), No Hx Renal Disease and No Hx Polycystic Ovarian Syndrome Care OB Visit Log OB Flowsheet Initial Weight: Not Recorded Date <del>?</del> EGA Weight BP Alb Glu CTX Pres Fundal ht FHR Mov Dilation Station Effacement Hx Notes Visit Note 12/27/24 <del>?</del> 17w 5d 66.281 kg 136/89 absent 18 active No bleeding or contractions. No loss of fluids Ordered structural survey ultrasound for [facility] in 2 weeks. 01/20/25 <del>?</del> 21w 1d 69.513 kg 130/84 absent 22 active No bleeding. No contractions. Reviewed normal structural survey. Patient wants gender to be a surprise. 02/16/25 <del>?</del> 25w 0d 71.668 kg 127/80 absent unknown 24 145 active No OB complaints. Denies leaking, bleeding, contractions. Reports good movement. Patient still working Third trimester labs today. Discussed labor precautions. Increase fluids. Continue prenatals. Schedule growth sono at 32 weeks ESE Calculator Estimated Delivery Date Method Current WG Current Estimate 06/01/25 LMP (Certain) 25w 0d Other Estimates 05/30/25 Ultrasound #1 25w 2d 06/02/25 Ultrasound #2 24w 6d 06/01/25 Manual 25w 0d final ese: 06/01/25 Expected Delivery Route/Plan -0-0-1 Status post vaginal delivery 3 years ago without complications Specific Issue/Plans Blood type A-. Father the baby O-. Had appointments on 10/27 and 11/16 labs: A-/antibody screen negative rubella immune//hepatitis B surface antigen negative/HIV negative/hemoglobin 13 No urine culture checked no RPR checked no GC chlamydia checked will order Had 9-week ultrasound 10/27/2024: At [facility] live IUP 9-2/ weeks with a EDC of 05/30/2025. Declines NIPT Notes Visit Date: 01/20/25 Last Updated by: Odilia Dill (OB Clinic)MD Normal structural survey on chart at [facility] from 01/11/2025 Trichomonas GC chlamydia negative RPR negative hepatitis C- follow-up in 4 weeks. Visit Date: 12/27/24 Last Updated by: Odilia Dill (OB Clinic)MD Declines NIPT. Will order all labs not done the first time they were ordered at [facility] Office Procedures OBC Clinic LOC & Office Proc's Nursing/Assessment Patient Status: Established Patient OB Clinic Nursing Assessment: Medication Reconciliation, Update PMH in EMR and Vital Signs OB Clinic Coordination of Care: Consent,records obtained, informed consent, Education Simp Pt/Fam, Lab and Imaging orders, Results/Orders obtained and Staff clarify orders Special Needs: Heart tones Established Patient Charge Established Patient Point Assignment: 110 Established Patient Point Charge: EP Level 3 (80-115) Assessment & Plan Diagnosis / Problem List (1) Encounter for supervision of high risk in second trimester, antepartum: Status: Acute Plan Third trimester labs today. Discussed sono for growth at 32 weeks. Discussed diet and weight. Continue prenatals. Kick count will be started at 32 weeks as well and return in 4 weeks OB check Additional Plan Follow Up: 4 Weeks (obc)
[2025-02-16 08:43] VITALS: BP 127/80; PULSE 121; RESP 18; TEMP 36.2; O2SAT 98; BMI 29.0
== END 2025-02-16 09:45 | disposition home or self-care (01) ==
LOC: HODSOBC 08:29
PROVIDERS: PCP Family Medicine; Referring Provider Family Medicine; Supervising Provider Advanced Practice Midwife; Visit Provider Advanced Practice Midwife
DX: O09.92 Supervision of high risk pregnancy, unspecified, second trimester (principal); Z3A.25 25 weeks gestation of pregnancy
CPT/HCPCS: 99213; G0463

== ENCOUNTER → 2025-03-08 | Outpatient (CLI) | payer BC, SELFPAY ==
[2025-03-08 17:30] LABS: Basophils # (Auto) 0.0 Thou/mm3 (0.0-0.2); Basophils % (Auto) 0 % (0-2.5); Eosinophils # (Auto) 0.0 Thou/mm3 (0.0-0.5); Eosinophils % (Auto) 0 % (0-10); Hematocrit 33.7 % (36.0-46.0); Hemoglobin 11.9 g/dL (12.0-16.0); Immature Granulocytes Auto 0.05 Thou/mm3 (0.00-0.00); Lymphocytes # (Auto) 0.7 Thou/mm3 (1.0-4.8); Lymphocytes % (Auto) 11 % (10-50); Mean Corpuscular HGB Conc 35.3 g/dl (31.0-37.0); Mean Corpuscular Hemoglobin 29.7 pg (25.0-35.0); Mean Corpuscular Volume 84 fL (80-100); Monocytes # (Auto) 0.4 Thou/mm3 (0.0-0.8); Monocytes % (Auto) 6 % (0-12); Neutrophils # (Auto) 5.5 Thou/mm3 (1.8-7.7); Neutrophils % (Auto) 82 % (37-80); Nucleated Red Blood Cell # 0.00 Thou/mm3 (0.00-0.00); Nucleated Red Blood Cell % 0 /100 WBC (0); Platelet Count 187 Thou/mm3 (140-440); RDW Standard Deviation 39.8 fL (36.4-46.3); Red Blood Count 4.01 Miln/mm3 (4.00-5.20); White Blood Count 6.7 Thou/mm3 (3.6-11.0)
[2025-03-08 17:38] LABS: Glucose,1 Hour PP 50gm Dose 168 mg/dL (80-140)
[2025-03-08 17:59] LABS: Syphilis Nonreactive (Nonreactive)
== END | disposition home or self-care (01) ==
LOC: COPL 15:27
PROVIDERS: PCP Family Medicine; Referring Provider Advanced Practice Midwife; Visit Provider Advanced Practice Midwife
DX: O09.92 Supervision of high risk pregnancy, unspecified, second trimester (principal)
CPT/HCPCS: 36415; 82950; 85025; 86780

== ENCOUNTER 2025-03-14 09:25 | Outpatient (AMB) | payer BC, SELFPAY ==
[2025-03-14 09:34] VITALS: BP 131/85; PULSE 100; RESP 18; TEMP 36.2; O2SAT 98; BMI 29.7
--- NOTE | 2025-03-14 09:34 | OBCLNT_ITS ---
Vital Signs 03/14/25 09:34 Height 1.57 m Height Method Stated Weight 73.198 kg Weight Measurement Method Standing Scale BMI 29.7 BP 131/85 H Blood Pressure Source Automatic Cuff Blood Pressure Location Left Upper Arm Position Sitting Respiration 18 Pulse 100 Pulse Source Monitor Temp 97.2 F Temp Source Oral Pulse Oximetry (%) 98 Oxygen Delivery Method Room Air Allergies/Home Meds Allergies & Medications Allergies No Known Allergies Allergy (Verified 03/14/25 09:36) Medication Reconciliation ferrous sulfate 325 mg (65 mg iron) tablet (Iron (ferrous sulfate)) 325 mg PO BID #60 tabs 03/14/25 [Rx] Immunizations Immunizations Flu Vaccine in the Last 12 Months: No Flu Vaccine Exclusion Criteria: No Exclusion Criteria Care OB Visit Log OB Flowsheet Initial Weight: Not Recorded Date -?-?-?-?-?-?-?-?-?-?-?-?- EGA Weight BP Alb Glu CTX Pres Fundal ht FHR Mov Dilation Station Effacement Hx Notes Visit Note 12/27/24 -?-?-?-?-?-?-?-?-?-?-?-?- 17w 5d 66.281 kg 136/89 absent 18 active No bleeding or contractions. No loss of fluids Ordered luluur al survey ultrasound for [facility] in 2 weeks. 01/20/25 -?-?-?-?-?-?-?-?-?-?-?-?- 21w 1d 69.513 kg 130/84 absent 22 active No bleeding. No contractions. Reviewed normal structural survey. Patient wants gender to be a surprise. 02/16/25 -?-?-?-?-?-?-?-?-?-?-?-?- 25w 0d 71.668 kg 127/80 absent unknown 24 145 active No OB complaints. Denies leaking, bleeding, contractions. Reports good movement. Patient still working Third trimester labs today. Discussed labor precautions. Increase fluids. Continue prenatals. Schedule growth sono at 32 weeks ESE Calculator Estimated Delivery Date Method Current WG Current Estimate 06/01/25 LMP (Certain) 28w 5d Other Estimates 05/30/25 Ultrasound #1 29w 0d 06/02/25 Ultrasound #2 28w 4d 06/01/25 Manual 28w 5d final ese: Expected Delivery Route/Plan -0-0-1 Status post vaginal delivery 3 years ago without complications Specific Issue/Plans Blood type A-. Father the baby O-. Had appointments on 10/27 and 11/16 labs: A-/antibody screen negative rubella immune//hepatitis B surface antigen negative/HIV negative/hemoglobin 13 No urine culture checked no RPR checked no GC chlamydia checked will order Had 9-week ultrasound 10/27/2024: At [facility] live IUP 9-/ weeks with a EDC of 05/30/2025. Declines NIPT Notes Visit Date: 01/20/25 Last Updated by: Odilia Dill (OB Clinic)MD Normal structural survey on chart at [facility] from 01/11/2025 Trichomonas GC chlamydia negative RPR negative hepatitis C- follow-up in 4 weeks. Visit Date: 12/27/24 Last Updated by: Odilia Dill (OB Clinic)MD Declines NIPT. Will order all labs not done the first time they were ordered at [facility]. Office Procedures OBC Clinic LOC & Office Proc's Nursing/Assessment Patient Status: Established Patient OB Clinic Nursing Assessment: Medication Reconciliation, Update PMH in EMR and Vital Signs OB Clinic Coordination of Care: Consent,records obtained, informed consent, Education Simp Pt/Fam, Lab and Imaging orders, Results/Orders obtained and Staff clarify orders Special Needs: Heart tones Established Patient Charge Established Patient Point Assignment: 110 Established Patient Point Charge: EP Level 3 (80-115) Assessment & Plan Diagnosis / Problem List (1) Encounter for supervision of high risk in third trimester, antepartum: Status: Acute (2) Diet controlled gestational diabetes mellitus (GDM) in third trimester: Status: Acute Plan RTC 3 week obc, schedule 3-hour GTT and A1c. Discussed GDM diet. Increase activity. Discussed labor precautions. Will do a follow-up sono at 32 weeks. Return in 2 weeks OB check
== END 2025-03-14 10:08 | disposition home or self-care (01) ==
LOC: HODSOBC 09:25
PROVIDERS: PCP Family Medicine; Referring Provider Family Medicine; Supervising Provider Advanced Practice Midwife; Visit Provider Advanced Practice Midwife
DX: O09.893 Supervision of other high risk pregnancies, third trimester (principal); O24.410 Gestational diabetes mellitus in pregnancy, diet controlled; Z3A.28 28 weeks gestation of pregnancy
CPT/HCPCS: 99213; G0463

== ENCOUNTER → 2025-03-15 | Outpatient (CLI) | payer BC, SELFPAY ==
[2025-03-15 08:44] LABS: Glucose Estimated Average 91 mg/dL (80-131); Glucose,Fasting Gestational 73 mg/dL (70-120); Hemoglobin A1C 4.8 % Hgb (4.8-6.0)
[2025-03-15 09:41] LABS: Glucose 1 Hour, Gest 104 mg/dL (50-190)
[2025-03-15 10:28] LABS: Glucose 2 Hour,Gest 146 mg/dL (50-165)
[2025-03-15 11:08] LABS: Glucose 3 Hour, Gest 81 mg/dL (50-145)
== END | disposition home or self-care (01) ==
LOC: COPL 07:10
PROVIDERS: PCP Family Medicine; Referring Provider Advanced Practice Midwife; Visit Provider Advanced Practice Midwife
DX: O24.410 Gestational diabetes mellitus in pregnancy, diet controlled (principal); O09.93 Supervision of high risk pregnancy, unspecified, third trimester
CPT/HCPCS: 36415; 82951; 82952; 83036

== ENCOUNTER 2025-03-28 09:00 | Outpatient (AMB) | payer BC, SELFPAY ==
[2025-03-28 09:27] VITALS: BP 121/83; PULSE 104; RESP 18; TEMP 36.3; O2SAT 98; BMI 30.4
--- NOTE | 2025-03-28 09:27 | OBCLNT_ITS ---
Vital Signs 03/28/25 09:27 Height 1.57 m Height Method Stated Weight 75.07 kg Weight Measurement Method Standing Scale BMI 30.4 BP 121/83 Blood Pressure Source Automatic Cuff Blood Pressure Location Left Upper Arm Position Sitting Respiration 18 Pulse 104 H Pulse Source Monitor Temp 97.3 F Temp Source Oral Pulse Oximetry (%) 98 Oxygen Delivery Method Room Air Allergies/Home Meds Allergies & Medications Allergies No Known Allergies Allergy (Verified 03/28/25 09:28) Medication Reconciliation ferrous sulfate 325 mg (65 mg iron) tablet (Iron (ferrous sulfate)) 325 mg PO BID #60 tabs 03/14/25 [Rx Confirmed 03/28/25] Immunizations Immunizations Flu Vaccine in the Last 12 Months: Yes Flu Vaccine Exclusion Criteria: Already Received Care OB Visit Log OB Flowsheet Initial Weight: Not Recorded Date -?-?-?-?-?-?-?-?-?-?-?-?- EGA Weight BP Alb Glu CTX Pres Fundal ht FHR Mov Dilation Station Effacement Hx Notes Visit Note 12/27/24 -?-?-?-?-?-?-?-?-?-?-?-?- 17w 5d 66.281 kg 136/89 absent 18 active No bleeding or contractions. No loss of fluids Ordered luluur al survey ultrasound for [facility] in 2 weeks. 01/20/25 -?-?-?-?-?-?-?-?-?-?-?-?- 21w 1d 69.513 kg 130/84 absent 22 active No bleeding. No contractions. Reviewed normal structural survey. Patient wants gender to be a surprise. 02/16/25 -?-?-?-?-?-?-?-?-?-?-?-?- 25w 0d 71.668 kg 127/80 absent unknown 24 145 active No OB complaints. Denies leaking, bleeding, contractions. Reports good movement. Patient still working Third trimester labs today. Discussed labor precautions. Increase fluids. Continue prenatals. Schedule growth sono at 32 weeks 03/14/25 -?-?-?-?-?-?-?-?-?-?-?-?- 28w 5d 73.198 kg 131/85 absent unknown 28 145 active No OB complaints. Reports good movement. No labor complaints Discussed abnormal 1 hour GTT. To be ordered. I ordered iron to take twice a day. With vitamin C. And increase iron foods. Return in 3 weeks OB check 03/28/25 -?-?-?-?-?-?-?-?-?-?-?-?- 30w 5d 75.07 kg 121/83 absent cephalic 29 145 active Reports good movement. Denies leaking, bleeding, contractions. Patient agrees to Tdap. No OB complaints Schedule growth sono at [facility]. Discussed labor precautions. Reviewed third trimester labs normal. Walk 40 minutes a day. Kick count twice a day. Tdap given today. Return 2 weeks OB ESE Calculator Estimated Delivery Date Method Current WG Current Estimate 06/01/25 LMP (Certain) 30w 5d Other Estimates 05/30/25 Ultrasound #1 31w 0d 06/02/25 Ultrasound #2 30w 4d 06/01/25 Manual 30w 5d final ese: Expected Delivery Route/Plan -0-0-1 Status post vaginal delivery 3 years ago without complications Specific Issue/Plans Blood type A-. Father the baby O-. Had appointments on 10/27 and 11/16 labs: A-/antibody screen negative rubella immune//hepatitis B surface antigen negative/HIV negative/hemoglobin 13 No urine culture checked no RPR checked no GC chlamydia checked will order Had 9-week ultrasound 10/27/2024: At [facility] live IUP 9-2/7 weeks with a EDC of 05/30/2025. Declines NIPT Notes Visit Date: 03/28/25 Last Updated by: Bella Weber CNM 03/28/25: 3 hr gtt wnl Visit Date: 03/14/25 Last Updated by: Bella Weber CNM 1 hr gtt: 168 Visit Date: 01/20/25 Last Updated by: Odilia Dill (OB Clinic)MD Normal structural survey on chart at [facility] from 01/11/2025 Trichomonas GC chlamydia negative RPR negative hepatitis C- follow-up in 4 weeks. Visit Date: 12/27/24 Last Updated by: Odilia Dill (OB Clinic)MD Declines NIPT. Will order all labs not done the first time they were ordered at [facility]. Office Procedures OBC Clinic LOC & Office Proc's Nursing/Assessment Patient Status: Established Patient OB Clinic Nursing Assessment: Medication Reconciliation, Update PMH in EMR and Vital Signs OB Clinic Coordination of Care: Complex Care and Chronic Disease 1-5, Consent,records obtained, informed consent, Education Simp Pt/Fam, 1 Ins Authorization, Lab and Imaging orders, Results/Orders obtained and Staff clarify orders Special Needs: Heart tones Established Patient Charge Established Patient Point Assignment: 150 Established Patient Point Charge: EP Level 4 (120-155) Injection/Vaccine Admin SQ Im Injection: Yes Immunizations diphth,pertus(acell),tetanus 2.5 Lf unit-8 mcg-5 Lf/0.5mL IM syringe Performing Provider: Bella Weber CNM Performing Location: [facility] Administered by: Blanquita Koch MA on 03/28/25 13:48 Dose Route Admin Location Dispensed Lot Number Expiration Date Pack age [facility] [employer] 0.5 mL IM Left Deltoid 0.5 mL [id number] 07/22/27 46923-878-65 [id number] [employer] VIS Given Date VIS Provided VIS Publication Date 03/28/25 Single Vaccine 24 Eligibility Eligibility Date Funding Source Public Non-[facility] Assessment & Plan Diagnosis / Problem List (1) Encounter for supervision of high risk in third trimester, antepartum: Status: Acute Plan Discussed 3-hour GTT. Continue GDM diet. Walk 40 minutes a day. Discussed labor precautions. Kick count twice a day. Schedule ultrasound at [facility] for growth. Return in 2 weeks OB check. Tdap today Additional Plan Follow Up: 2 Weeks (obc)
== END 2025-03-28 10:10 | disposition home or self-care (01) ==
LOC: HODSOBC 09:00
PROVIDERS: Supervising Provider Advanced Practice Midwife; Visit Provider Advanced Practice Midwife
DX: O09.93 Supervision of high risk pregnancy, unspecified, third trimester (principal); Z3A.30 30 weeks gestation of pregnancy; Z23 Encounter for immunization
CPT/HCPCS: 90471; 90715; 96372; 99214; G0463

== ENCOUNTER 2025-04-13 08:23 | Outpatient (AMB) | payer BC, SELFPAY ==
--- NOTE | 2025-04-13 08:30 | AMB.OBPNC ---
Vital Signs 04/13/25 08:31 Height 1.57 m Height Method Stated Weight 77.167 kg Weight Measurement Method Standing Scale BMI 31.3 BP 125/86 H Blood Pressure Source Automatic Cuff Blood Pressure Location Left Upper Arm Position Sitting Respiration 18 Pulse 110 H Pulse Source Monitor Temp 98.2 F Temp Source Oral Pulse Oximetry (%) 98 Oxygen Delivery Method Room Air Allergies/Home Meds Allergies & Medications Allergies No Known Allergies Allergy (Verified 04/13/25 08:32) Medication Reconciliation ferrous sulfate 325 mg (65 mg iron) tablet (Iron (ferrous sulfate)) 325 mg PO BID #60 tabs 03/14/25 [Rx Confirmed 04/13/25] Immunizations Immunizations Flu Vaccine in the Last 12 Months: No Flu Vaccine Exclusion Criteria: No Exclusion Criteria Care OB Visit Log OB Flowsheet Initial Weight: Not Recorded Date <del>?</del> EGA Weight BP Alb Glu CTX Pres Fundal ht FHR Mov Dilation Station Effacement Hx Notes Visit Note 12/27/24 <del>?</del> 17w 5d 66.281 kg 136/89 absent 18 active No bleeding or contractions. No loss of fluids Ordered structural survey ultrasound for [facility] in 2 weeks. 01/20/25 <del>?</del> 21w 1d 69.513 kg 130/84 absent 22 active No bleeding. No contractions. Reviewed normal structural survey. Patient wants gender to be a surprise. 02/16/25 <del>?</del> 25w 0d 71.668 kg 127/80 absent unknown 24 145 active No OB complaints. Denies leaking, bleeding, contractions. Reports good movement. Patient still working Third trimester labs today. Discussed labor precautions. Increase fluids. Continue prenatals. Schedule growth sono at 32 weeks 03/14/25 <del>?</del> 28w 5d 73.198 kg 131/85 absent unknown 28 145 active No OB complaints. Reports good movement. No labor complaints Discussed abnormal 1 hour GTT. To be ordered. I ordered iron to take twice a day. With vitamin C. And increase iron foods. Return in 3 weeks OB check 03/28/25 <del>?</del> 30w 5d 75.07 kg 121/83 absent cephalic 29 145 active Reports good movement. Denies leaking, bleeding, contractions. Patient agrees to Tdap. No OB complaints Schedule growth sono at [facility]. Discussed labor precautions. Reviewed third trimester labs normal. Walk 40 minutes a day. Kick count twice a day. Tdap given today. Return 2 weeks OB 04/13/25 <del>?</del> 33w 0d 77.167 kg 125/86 absent cephalic 32 145 active Reports good movement. Denies leaking, bleeding, contractions. Patient plans to start disability April 29. And the last date of work will be April Kick count twice a day. Reviewed labor precautions. GBS next visit. Disability papers given to patient. Last date of work will be April 28. And disability will start April 29 ESE Calculator Estimated Delivery Date Method Current WG Current Estimate 06/01/25 LMP (Certain) 33w 0d Other Estimates 05/30/25 Ultrasound #1 33w 2d 06/02/25 Ultrasound #2 32w 6d 06/01/25 Manual 33w 0d final ese: 06/01/25, 03/31 EFW:31% Expected Delivery Route/Plan -0-0-1 Status post vaginal delivery 3 years ago without complications Specific Issue/Plans Blood type A-. Father the baby O-. Had appointments on 10/27 and 11/16 labs: A-/antibody screen negative rubella immune//hepatitis B surface antigen negative/HIV negative/hemoglobin 13 No urine culture checked no RPR checked no GC chlamydia checked will order Had 9-week ultrasound 10/27/2024: At [facility] live IUP 9-2/7 weeks with a EDC of 05/30/2025. Declines NIPT Notes Visit Date: 04/13/25 Last Updated by: Bella Weber CNM 03/31 sono: IUP 31w5. EFW: 31% Visit Date: 03/28/25 Last Updated by: Bella Weber CNM 03/28/25: 3 hr gtt wnl Visit Date: 03/14/25 Last Updated by: Bella Weber CNM 1 hr gtt: 168 Visit Date: 01/20/25 Last Updated by: Odilia Dill (OB Clinic)MD Normal structural survey on chart at [facility] from 01/11/2025 Trichomonas GC chlamydia negative RPR negative hepatitis C- follow-up in 4 weeks. Visit Date: 12/27/24 Last Updated by: Odilia Dill (OB Clinic)MD Declines NIPT. Will order all labs not done the first time they were ordered at [facility]. Office Procedures OBC Clinic LOC & Office Proc's Nursing/Assessment Patient Status: Established Patient OB Clinic Nursing Assessment: Medication Reconciliation, Update PMH in EMR and Vital Signs OB Clinic Coordination of Care: Consent,records obtained, informed consent, Education Simp Pt/Fam, Lab and Imaging orders, Results/Orders obtained and Staff clarify orders Special Needs: Heart tones Established Patient Charge Established Patient Point Assignment: 110 Established Patient Point Charge: EP Level 3 (80-115) Assessment & Plan Diagnosis / Problem List (1) Encounter for supervision of high risk in third trimester, antepartum: Status: Acute Plan Discussed permanent term labor precautions. Kick count twice a day. Watch sugary foods. Increase fluids and continue prenatals and return in 2 weeks OB Additional Plan Follow Up: 2 Weeks (obc)
[2025-04-13 08:31] VITALS: BP 125/86; PULSE 110; RESP 18; TEMP 36.8; O2SAT 98; BMI 31.3
== END 2025-04-13 09:01 | disposition home or self-care (01) ==
LOC: HODSOBC 08:23
PROVIDERS: Supervising Provider Advanced Practice Midwife; Visit Provider Advanced Practice Midwife
DX: O09.93 Supervision of high risk pregnancy, unspecified, third trimester (principal); Z3A.33 33 weeks gestation of pregnancy
CPT/HCPCS: 99213; G0463